=== PATIENT | male | born 1980 ===

== ENCOUNTER → 2019-03-25 | Emergency (ER) | payer OTHER ==
[~2019-03-25] VITALS: Ht 162.6 cm; Wt 97.5 kg
[~2019-03-25] MED LIST: ATIVAN0.5 MG PO; ZOCOR40 MG PO
== END | disposition left against medical advice (07) ==
LOC: ER 15:47
DX: Z53.20 Procedure and treatment not carried out because of patient's decision for unspecified reasons (principal)